=== PATIENT | male | born 1990 | race Caucasian/White ===

== ENCOUNTER → 2019-07-27 | Outpatient (CLI) | payer BC | LOC: COL.RAD 07:47 | DX: Q62.11 Congenital occlusion of ureteropelvic junction (principal) | CPT/HCPCS: A9562; J1940 ==

== ENCOUNTER 2019-08-10 09:04 | Day surgery (SDC) | payer BC ==
[2019-08-10] VITALS (11 sets, daily range): BP systolic 96–131; BP diastolic 53–85; PULSE 80–98; TEMP 98–98.4
[~2019-08-10] VITALS: Ht 177.8 cm; Wt 67.4 kg
[2019-08-10] MEDS ORDERED: ZYRTEC 10MG10 MG PO (09:45)
[2019-08-10] MEDS ORDERED: FLONASEALLERGY NS (10:02)
--- NOTE | 2019-08-10 16:16 | NUR ---
PT TO ROOM 341 PER BED WITH REPORT FROM LIANET MADSEN. PT IS A/0 X3, LUNGS CLEAR, ABDOMINAL SITES CDI WITH SWIFTSET. IV TO PUMP. FAMLIY AT BEDSIDE. BOWEL SOUNDS ABSENT.
--- NOTE | 2019-08-10 18:50 | NUR ---
REPORT TO THO MADSEN.
--- NOTE | 2019-08-10 20:30 | NUR ---
Pt. sitting up in bed at this time with mother at bedside. Pt. is A&OX3, assessment complete. IV to lt. hand patent, IV fluids infusing per orders. Pt. reports pain at a 5-6 on pain scale at this time. Pt. denies needs, call light within reach.
[2019-08-11 05:28] VITALS: BP 100/50; PULSE 64; TEMP 97.4
[2019-08-11 05:30] VITALS: BP 134/68; PULSE 95; TEMP 98.6
--- NOTE | 2019-08-11 06:58 | NUR ---
Report from Gerson MADSEN.
[2019-08-11 07:26] LABS: HEMATOCRIT 39.7 % (42.0-52.0); HEMOGLOBIN 13.8 g/dl (13.5-18.0); MEAN CELL VOLUME 88 fl (80.0-100.0); MEAN CORPUSCULAR HEMOGLOBIN 31 pg (27.0-31.0); MEAN CORPUSCULAR HGB CONC 35 g/dl (33.0-37.0); MEAN PLATELET VOLUME 9.6 fl (7.4-10.4); PLATELET COUNT 316 K/mm3 (130-400); RED BLOOD COUNT 4.53 M/mm3 (4.20-5.60); REDCELL DISTRIBUTION WIDTH-CV 11.9 % (11.5-14.5)
[2019-08-11 07:43] LABS: CALCIUM 8.6 mg/dL (8.4-10.2); CREATININE, serum 1.1 (0.66-1.25); POTASSIUM 4.4 mmol/L (3.4-5.0)
[2019-08-11 07:46] VITALS: BP 113/61; PULSE 72; TEMP 98
--- NOTE | 2019-08-11 07:54 | NUR ---
DR. LUZ ROUNDED ON PATEINT PLAN ON DISCHARGE LATER TODAY. NOTIFIED OF AM LABS. NO CHANGE IN PATIENT STATUS.
--- NOTE | 2019-08-11 08:34 | NUR ---
PT RESTING IN BED IV CAPPED. PT ATE ALL OF BREAKFAST NO N/V OR PAIN. INCISONS TO ABDOMEN CDI. PT DENIES PAIN.
[2019-08-11 08:42] LABS: BAND 1 % (0-10); LYMPHOCYTE 4 % (20.0-51.0); NEUTROPHILS 91 % (42.0-75.2); PLATELET ESTIMATE NORMAL (NORMAL)
--- NOTE | 2019-08-11 09:56 | NUR ---
SUSHIL met with the patient and the patient's mother, Valentine Guajardo (ph#[phone]), to discuss discharge plan. The patient lives in [place] at the [facility] with his mother. He reports independence with ADLs and does not have any DME. The patient receives primary care at [facility] in [place] and he receives his medications at [facility] in [place]. He reports no difficulties obtaining his meds. The patient's emergency contact and next-of-kin is his mother. The patient plans to return home with his mother upon discharge. No additional needs at this time.
[2019-08-11 11:24] VITALS: BP 128/68; PULSE 104; TEMP 97.8
--- NOTE | 2019-08-11 16:11 | NUR ---
PATIENT RECEIVED DISCHARGE INSTRUCTIONS QUESTIONS ANSWERED, PT TAKEN OUT BY WHEEL CHAIR.
== END 2019-08-11 16:12 | disposition home or self-care (01) ==
LOC: INPTSU 09:04 → SURG 09:04 → SDCO 09:04 → SURG 11:00 → EDSTATUS 11:00 → INPTSU 16:48 → SURG 16:48 → SDCO 08-11 16:12
PROVIDERS: Physician Assistant Surgical
DX: N03.9 Chronic nephritic syndrome with unspecified morphologic changes (principal); N13.30 Unspecified hydronephrosis; F17.210 Nicotine dependence, cigarettes, uncomplicated; J30.2 Other seasonal allergic rhinitis; N26.1 Atrophy of kidney (terminal)
CPT/HCPCS: A4314; J0330; J0690; J1100; J1170; J1650; J1885; J2370; J2405; J2704; J3010; J7120